=== PATIENT | male | born 1945 | race Caucasian/White ===

== ENCOUNTER → 2017-10-27 | Outpatient (REF) ==
[2017-10-27 09:48] LABS: BASO # 0.1 (0.0-0.2); BASO % 0.6 % (0.0-2.0); EOS # 0.8 (0.0-0.7); EOS % 8.1 % (0-4.0); GRAN # 4.5 (1.4-6.5); GRAN % 48.6 % (42.2-75.2); HEMATOCRIT 42.7 % (42.0-52.0); HEMOGLOBIN 14.3 g/dl (13.5-18.0); LYMPH # 3.1 (1.2-3.4); LYMPH % 33.3 % (20.0-51.0); MEAN CELL VOLUME 87 fl (80.0-100.0); MEAN CORPUSCULAR HEMOGLOBIN 29 pg (27.0-31.0); MEAN CORPUSCULAR HGB CONC 34 g/dl (33.0-37.0); MEAN PLATELET VOLUME 9.3 fl (7.4-10.4); MONO # 0.8 (0.1-0.6); MONO % 9.1 % (1.7-9.3); PLATELET COUNT 273 K/mm3 (130-400); RED BLOOD COUNT 4.92 M/mm3 (4.20-5.60); WHITE BLOOD COUNT 9.3 K/mm3 (4.8-10.8)
[2017-10-27 09:54] LABS: CALCIUM 9.7 mg/dL (8.4-10.2); CREATININE, serum 0.9 mg/dL (0.66-1.25); POTASSIUM 5.1 mmol/L (3.4-5.0)
== END ==
LOC: ZLAB.STJ 09:36
DX: E11.41 Type 2 diabetes mellitus with diabetic mononeuropathy (principal); I10 Essential (primary) hypertension; Z79.4 Long term (current) use of insulin

== ENCOUNTER → 2017-12-13 | Outpatient (CLI) | payer MEDICARE | LOC: ZCOL.LAB 15:57 | DX: E11.621 Type 2 diabetes mellitus with foot ulcer (principal); L89.159 Pressure ulcer of sacral region, unspecified stage ==

== ENCOUNTER 2017-12-16 05:40 | Inpatient (IN) | payer MEDICARE ==
[2017-12-16] VITALS (399 sets, daily range): BP systolic 105–130; BP diastolic 65–74; PULSE 79–81; TEMP 97.8–98.6; O2SAT 85–100
[~2017-12-16] VITALS: Ht 177.8 cm; Wt 110.0 kg
[2017-12-16 06:01] LABS: BASO # 0.1 (0.0-0.2); BASO % 0.8 % (0.0-2.0); EOS # 0.4 (0.0-0.7); EOS % 3.4 % (0-4.0); GRAN # 7.2 (1.4-6.5); GRAN % 61.7 % (42.2-75.2); HEMATOCRIT 42.8 % (42.0-52.0); HEMOGLOBIN 14.3 g/dl (13.5-18.0); LYMPH # 2.8 (1.2-3.4); LYMPH % 24.4 % (20.0-51.0); MEAN CELL VOLUME 84 fl (80.0-100.0); MEAN CORPUSCULAR HEMOGLOBIN 28 pg (27.0-31.0); MEAN CORPUSCULAR HGB CONC 33 g/dl (33.0-37.0); MEAN PLATELET VOLUME 9.2 fl (7.4-10.4); MONO # 1.1 (0.1-0.6); MONO % 9.1 % (1.7-9.3); PLATELET COUNT 397 K/mm3 (130-400); RED BLOOD COUNT 5.09 M/mm3 (4.20-5.60); REDCELL DISTRIBUTION WIDTH-CV 13.9 % (11.5-14.5)
[2017-12-16 06:08] LABS: ALBUMIN 3.9 gm/dL (3.5-5.0); BILIRUBIN,TOTAL 0.5 mg/dL (0.0-1.0); CALCIUM 10.3 mg/dL (8.4-10.2); CREATININE, serum 1.82 mg/dL (0.66-1.25); MAGNESIUM 2.5 mg/dL (1.6-2.3); PHOSPHOROUS 5.9 mg/dL (2.5-4.5); TOTAL PROTEIN 7.6 gm/dL (6.4-8.2)
[2017-12-16 06:10] LABS: POTASSIUM 6.3 mmol/L (3.4-5.0)
[2017-12-16 06:20] LABS: TROPONIN-I 0.025 ng/mL (0.000-0.034)
[2017-12-16] MEDS ORDERED: TYLENOL 325MG325 MG PO (08:06)
[2017-12-16] MEDS ORDERED: VITAMIN C500 MG PO (08:07)
[2017-12-16] MEDS ORDERED: NORVASC 10MG10 MG PO (08:07)
[2017-12-16] MEDS ORDERED: TENORMIN 5050 MG/TAB PO (08:08)
[2017-12-16] MEDS ORDERED: ASPIRIN E.C. 8181 MG PO (08:08)
[2017-12-16] MEDS ORDERED: VITAMIN B100 CO1 TAB PO (08:09)
[2017-12-16] MEDS ORDERED: ZETIA 10MG TAB10 MG PO (08:09)
[2017-12-16] MEDS ORDERED: LANTUS100 U/ML SQ (08:10)
[2017-12-16] MEDS ORDERED: HCTZ 25MG TAB25 MG PO (08:10)
[2017-12-16] MEDS ORDERED: GLUCOPHAGE1000 MG PO (08:11)
[2017-12-16] MEDS ORDERED: EFFEXOR-XR150 MG PO (08:12)
[2017-12-16] MEDS ORDERED: MULTIPLE VITAMI1 CAP PO (08:12)
[2017-12-16] MEDS ORDERED: MONOPRIL40 MG PO (08:13)
[2017-12-16] MEDS ORDERED: BIOTENE DRY M1000 ML PO (08:23)
[2017-12-16] MEDS ORDERED: KLONOPIN 1MG1 MG PO (08:24)
[2017-12-16] MEDS ORDERED: ULTRAM 50MG TAB50 MG PO (08:24)
[2017-12-16] MEDS ORDERED: ZOFRAN 4MG T4 MG/TAB PO (08:25)
[2017-12-16] MEDS ORDERED: NOVOLOG 100U100 U/M1 SQ (08:25)
[2017-12-16] MEDS ORDERED: LIORESAL 1010 MG/TAB PO ×2 (08:26)
[2017-12-16] MEDS ORDERED: SANTYL30 TP (08:27)
[2017-12-16] MEDS ORDERED: ULTRAM ER100 MG PO (08:27)
[2017-12-16] MEDS ORDERED: NIZORAL SHAMPO120 M1 TP (08:28)
[2017-12-16] MEDS ORDERED: MUCINEX 60600 MG/TA1 PO (09:35)
[2017-12-16] MEDS ORDERED: NYAMYC100000 U/G TP (09:40)
[2017-12-16] MEDS ORDERED: VOLTAREN GEL 1%1 TU TP (09:41)
[2017-12-16] MEDS ORDERED: TEARS-ARTIFICIA15 ML OP (09:41)
[2017-12-16 13:16] LABS: COLLECTION METHOD CLEAN CATCH
[2017-12-16 13:30] LABS: MUCOUS Present /lpf; PH 5 (5-8); SQUAMOUS EPITHELIAL None Seen /hpf; URINE APPEARANCE Turbid; URINE BACTERIA Rare /hpf; URINE BILIRUBIN Negative (NEGATIVE); URINE BLOOD 1+ (NEGATIVE); URINE COLOR Yellow; URINE GLUCOSE Negative (NEGATIVE); URINE KETONE Trace (NEGATIVE); URINE LEUKOCYTE ESTERASE 3+ (NEGATIVE); URINE NITRATE Negative (NEGATIVE); URINE PROTEIN(semi-quant) 1+ (NEGATIVE); URINE RBC 20-50 /hpf; URINE UROBILINOGEN Negative (NEGATIVE)
[2017-12-17] VITALS (316 sets, daily range): BP systolic 105–134; BP diastolic 50–71; PULSE 75–95; TEMP 97.7–100.2; O2SAT 85–100
[2017-12-17 05:48] LABS: BASO # 0.1 (0.0-0.2); BASO % 0.7 % (0.0-2.0); EOS # 0.3 (0.0-0.7); EOS % 3.1 % (0-4.0); GRAN # 5.2 (1.4-6.5); GRAN % 61.8 % (42.2-75.2); HEMATOCRIT 37.9 % (42.0-52.0); HEMOGLOBIN 12.7 g/dl (13.5-18.0); LYMPH % 23.9 % (20.0-51.0); MEAN CELL VOLUME 85 fl (80.0-100.0); MEAN CORPUSCULAR HEMOGLOBIN 28 pg (27.0-31.0); MEAN CORPUSCULAR HGB CONC 34 g/dl (33.0-37.0); MEAN PLATELET VOLUME 9.1 fl (7.4-10.4); MONO # 0.9 (0.1-0.6); MONO % 10.1 % (1.7-9.3); PLATELET COUNT 308 K/mm3 (130-400); RED BLOOD COUNT 4.48 M/mm3 (4.20-5.60)
[2017-12-17 06:02] LABS: CALCIUM 9.4 mg/dL (8.4-10.2); CHOLESTEROL RISK RATIO 6.7; CREATININE, serum 1.19 mg/dL (0.66-1.25); PHOSPHOROUS 4.8 mg/dL (2.5-4.5); POTASSIUM 4.3 mmol/L (3.4-5.0)
[2017-12-18 03:28] VITALS: BP 111/56; PULSE 76; TEMP 97.8
[2017-12-18 06:46] LABS: BASO # 0.1 (0.0-0.2); BASO % 0.6 % (0.0-2.0); EOS # 0.4 (0.0-0.7); EOS % 3.9 % (0-4.0); GRAN # 5.3 (1.4-6.5); GRAN % 58.5 % (42.2-75.2); LYMPH # 2.4 (1.2-3.4); LYMPH % 26.8 % (20.0-51.0); MEAN CELL VOLUME 84 fl (80.0-100.0); MEAN CORPUSCULAR HGB CONC 33 g/dl (33.0-37.0); MEAN PLATELET VOLUME 9.5 fl (7.4-10.4); MONO # 0.9 (0.1-0.6); MONO % 9.8 % (1.7-9.3); PLATELET COUNT 279 K/mm3 (130-400); REDCELL DISTRIBUTION WIDTH-CV 13.8 % (11.5-14.5)
[2017-12-18 06:51] LABS: CALCIUM 8.8 mg/dL (8.4-10.2); CREATININE, serum 1.07 mg/dL (0.66-1.25); MAGNESIUM 1.6 mg/dL (1.6-2.3); PHOSPHOROUS 3.9 mg/dL (2.5-4.5); POTASSIUM 3.1 mmol/L (3.4-5.0)
[2017-12-18 06:53] LABS: HEMOGLOBIN 11.9 g/dl (13.5-18.0); MEAN CORPUSCULAR HEMOGLOBIN 28 pg (27.0-31.0)
[2017-12-18 08:12] VITALS: BP 115/66; PULSE 95; TEMP 97.9
[2017-12-18 11:36] VITALS: BP 114/48; PULSE 77; TEMP 98
[2017-12-18 15:48] VITALS: BP 130/43; PULSE 80; TEMP 98.9
[2017-12-18 16:09] VITALS: BP 101/54; PULSE 67; TEMP 98.3
[2017-12-18 20:08] VITALS: BP 106/56; PULSE 67; TEMP 98.2
[2017-12-19 00:27] VITALS: BP 117/56; PULSE 64; TEMP 98.6
[2017-12-19 04:21] VITALS: BP 102/66; PULSE 67; TEMP 97.6
[2017-12-19 06:44] LABS: BASO # 0.1 (0.0-0.2); BASO % 0.7 % (0.0-2.0); EOS # 0.5 (0.0-0.7); EOS % 7.5 % (0-4.0); GRAN # 4.3 (1.4-6.5); GRAN % 59.7 % (42.2-75.2); LYMPH # 1.7 (1.2-3.4); LYMPH % 23.2 % (20.0-51.0); MEAN CELL VOLUME 86 fl (80.0-100.0); MEAN CORPUSCULAR HEMOGLOBIN 28 pg (27.0-31.0); MEAN CORPUSCULAR HGB CONC 33 g/dl (33.0-37.0); MEAN PLATELET VOLUME 9.5 fl (7.4-10.4); MONO # 0.6 (0.1-0.6); MONO % 8.6 % (1.7-9.3); PLATELET COUNT 238 K/mm3 (130-400); RED BLOOD COUNT 4.28 M/mm3 (4.20-5.60); REDCELL DISTRIBUTION WIDTH-CV 14.1 % (11.5-14.5)
[2017-12-19 06:45] LABS: HEMATOCRIT 36.8 % (42.0-52.0)
[2017-12-19 06:50] LABS: CALCIUM 8.9 mg/dL (8.4-10.2); CREATININE, serum 0.97 mg/dL (0.66-1.25); POTASSIUM 3.4 mmol/L (3.4-5.0)
[2017-12-19 07:45] VITALS: BP 110/46; PULSE 72; TEMP 99
[2017-12-19] MEDS ORDERED: PLAVIX 75MG TAB75 MG PO (11:18)
[2017-12-19] MEDS ORDERED: NORCO 325 MG-51 TAB PO (11:23)
[2017-12-19] MEDS ORDERED: KLONOPIN 1MG1 MG PO (11:23)
[2017-12-19] MEDS ORDERED: ZESTRIL2.5 MG PO (11:30)
[2017-12-19 12:11] VITALS: BP 107/64; PULSE 68; TEMP 97.9
[2017-12-19 13:10] VITALS: BP 107/64; PULSE 68; TEMP 97.9
== END 2017-12-19 15:50 | DRG 71 ==
LOC: COL.ER 05:40 → ICU 07:00 → MEDICAL 12-17 15:00
PROVIDERS: Emergency Medicine; Family Medicine
DX: G93.41 Metabolic encephalopathy (principal); N17.9 Acute kidney failure, unspecified; E87.1 Hypo-osmolality and hyponatremia; N39.0 Urinary tract infection, site not specified; E87.5 Hyperkalemia; E87.6 Hypokalemia; I10 Essential (primary) hypertension; F43.10 Post-traumatic stress disorder, unspecified; G82.20 Paraplegia, unspecified; E11.9 Type 2 diabetes mellitus without complications; L89.622 Pressure ulcer of left heel, stage 2; L89.152 Pressure ulcer of sacral region, stage 2; Z79.4 Long term (current) use of insulin
CPT/HCPCS: 99223-AI; 99232-AI; 99233-AI; 99239; J0610; J0696; J1644; J1815; J3370; J7030; J7040; J7050

== ENCOUNTER → 2017-12-16 | Outpatient (CLI) | payer MEDICARE ==
[~2017-12-16] MED LIST: ASPIRIN E.C. 8181 MG PO; BIOTENE DRY M1000 ML PO; EFFEXOR-XR150 MG PO; GLUCOPHAGE1000 MG PO; HCTZ 25MG TAB25 MG PO; KLONOPIN 1MG1 MG PO; LANTUS100 U/ML SQ; LIORESAL 1010 MG/TAB PO; MONOPRIL40 MG PO; MUCINEX 60600 MG/TA1 PO; MULTIPLE VITAMI1 CAP PO; NIZORAL SHAMPO120 M1 TP; NORCO 325 MG-51 TAB PO; NORVASC 10MG10 MG PO; NOVOLOG 100U100 U/M1 SQ; NYAMYC100000 U/G TP; PLAVIX 75MG TAB75 MG PO; SANTYL30 TP; TEARS-ARTIFICIA15 ML OP; TENORMIN 5050 MG/TAB PO; TYLENOL 325MG325 MG PO; ULTRAM 50MG TAB50 MG PO; ULTRAM ER100 MG PO; VITAMIN B100 CO1 TAB PO; VITAMIN C500 MG PO; VOLTAREN GEL 1%1 TU TP; ZESTRIL2.5 MG PO; ZETIA 10MG TAB10 MG PO; ZOFRAN 4MG T4 MG/TAB PO
== END ==
LOC: ZLAB.STJ 09:09
DX: L89.614 Pressure ulcer of right heel, stage 4 (principal)

== ENCOUNTER → 2017-12-22 | Outpatient (REF) ==
[2017-12-22 09:24] LABS: COLLECTION METHOD CATHETER
[2017-12-22 09:37] LABS: MUCOUS Present /lpf; PH 5 (5-8); SQUAMOUS EPITHELIAL 0-2 /hpf; URINE APPEARANCE Cloudy; URINE BACTERIA Rare /hpf; URINE BILIRUBIN Negative (NEGATIVE); URINE BLOOD 1+ (NEGATIVE); URINE COLOR Yellow; URINE GLUCOSE Negative (NEGATIVE); URINE KETONE Negative (NEGATIVE); URINE LEUKOCYTE ESTERASE 3+ (NEGATIVE); URINE NITRATE Negative (NEGATIVE); URINE PROTEIN(semi-quant) 1+ (NEGATIVE); URINE RBC 20-50 /hpf; URINE UROBILINOGEN Negative (NEGATIVE); URINE WBC >50 /hpf
== END ==
LOC: ZLAB.STJ 09:22
PROVIDERS: Internal Medicine
DX: N39.0 Urinary tract infection, site not specified (principal)

== ENCOUNTER → 2017-12-22 | Outpatient (REF) ==
[2017-12-22 14:35] LABS: BASO % 0.5 % (0.0-2.0); EOS # 1.2 (0.0-0.7); EOS % 14.4 % (0-4.0); GRAN # 4.7 (1.4-6.5); GRAN % 56.2 % (42.2-75.2); LYMPH # 1.7 (1.2-3.4); LYMPH % 20.1 % (20.0-51.0); MEAN CELL VOLUME 84 fl (80.0-100.0); MEAN CORPUSCULAR HEMOGLOBIN 28 pg (27.0-31.0); MEAN CORPUSCULAR HGB CONC 33 g/dl (33.0-37.0); MEAN PLATELET VOLUME 9.6 fl (7.4-10.4); MONO # 0.7 (0.1-0.6); MONO % 8.6 % (1.7-9.3); PLATELET COUNT 231 K/mm3 (130-400); RED BLOOD COUNT 4.27 M/mm3 (4.20-5.60); REDCELL DISTRIBUTION WIDTH-CV 14.6 % (11.5-14.5)
[2017-12-22 14:42] LABS: ALBUMIN 2.7 gm/dL (3.5-5.0); BILIRUBIN,TOTAL 0.3 mg/dL (0.0-1.0); CALCIUM 8.4 mg/dL (8.4-10.2); CREATININE, serum 0.87 mg/dL (0.66-1.25); HEMATOCRIT 35.9 % (42.0-52.0); POTASSIUM 4.6 mmol/L (3.4-5.0); TOTAL PROTEIN 5.3 gm/dL (6.4-8.2)
== END ==
LOC: ZLAB.STJ 14:26
PROVIDERS: Internal Medicine
DX: I10 Essential (primary) hypertension (principal)

== ENCOUNTER → 2018-01-02 | Outpatient (CLI) | payer MEDICARE ==
[2018-01-02 14:24] LABS: CHOLESTEROL RISK RATIO 7.4
== END ==
LOC: ZLAB.STJ 13:56
PROVIDERS: Internal Medicine
DX: E78.5 Hyperlipidemia, unspecified (principal)

== ENCOUNTER → 2018-01-19 | Outpatient (CLI) | payer MEDICARE | LOC: ZLAB.STJ 16:00 | DX: Z01.89 Encounter for other specified special examinations (principal) ==

== ENCOUNTER → 2018-01-20 | Outpatient (REF) | LOC: ZLAB.STJ 12:53 | DX: Z01.89 Encounter for other specified special examinations (principal) ==

== ENCOUNTER → 2018-02-27 | Outpatient (REF) ==
[~2018-02-27] MED LIST changes: +ATARAX 25MG25 MG/TAB PO; +CIPRO 500MG TA500 MG PO; +GLUCERNA 240 M240 ML PO; +JUVEN1 PDR PO; +NORCO 325 MG-101 TAB PO; +SILVADENE CREAM1 TU TP
[2018-02-27 13:48] LABS: COLLECTION METHOD CATHETER
[2018-02-27 14:05] LABS: MUCOUS Present /lpf; PH 6 (5-8); SQUAMOUS EPITHELIAL None Seen /hpf; URINE APPEARANCE Cloudy; URINE BACTERIA None Seen /hpf; URINE BILIRUBIN Negative (NEGATIVE); URINE BLOOD Negative (NEGATIVE); URINE COLOR Amber; URINE GLUCOSE Negative (NEGATIVE); URINE KETONE Negative (NEGATIVE); URINE LEUKOCYTE ESTERASE 2+ (NEGATIVE); URINE NITRATE Negative (NEGATIVE); URINE PROTEIN(semi-quant) 3+ (NEGATIVE); URINE RBC >50 /hpf; URINE UROBILINOGEN Negative (NEGATIVE)
== END ==
LOC: ZLAB.STJ 13:46
PROVIDERS: Nurse Practitioner
DX: N39.0 Urinary tract infection, site not specified (principal)